=== PATIENT | female | born 2000 | race African-American/Black ===

== ENCOUNTER 2020-07-14 07:40 | Inpatient (IN) | payer SELFPAY ==
[~2020-07-14] VITALS: Ht 167.6 cm; Wt 80.9 kg
[2020-07-14 08:20] LABS: BASO % 0 % (0-3); EOS % 0 % (0-3); LYMPH # 0.8 x10^3/uL (1.0-4.8); LYMPH % 6 % (24-48); MEAN CORPUSCULAR HEMOGLOBIN 31 pg (25-35); MEAN CORPUSCULAR HGB CONC 34 g/dL (31-37); MEAN CORPUSCULAR VOLUME 94 fL (79-100); MONO # 0.8 x10^3/uL (0.0-1.1); MONO % 6 % (0-9); NEUT # 11.8 x10^3/uL (1.8-7.7); NEUT % 88 % (31-73); PLATELET COUNT 244 x10^3/uL (140-400); RED BLOOD COUNT 4.16 x10^6/uL (3.50-5.40); RED CELL DISTRIBUTION WIDTH 13.5 % (11.5-14.5); WHITE BLOOD COUNT 13.5 x10^3/uL (4.0-11.0)
[2020-07-14] MEDS ORDERED: MORPHINE SULFATE 4 MG/ML VIAL. IV ONE ×2 (08:30→11:00)
[2020-07-14] MEDS ORDERED: IV NORMAL SALINE 1000ML BAG 1,000 ML IV ONE ×2 (08:30→09:15)
[2020-07-14] MEDS ORDERED: LIDOCAINE 1% Multi-Dose 20 ML VIAL. INJ ONE (08:30)
[2020-07-14 08:35] LABS: CALCIUM 9.2 mg/dL (8.5-10.1); GFR 83.9; POTASSIUM 3.8 mmol/L (3.5-5.1)
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
[2020-07-14 08:49] LABS: ALBUMIN/GLOBULIN RATIO 0.9 (1.0-1.7); TOTAL BILIRUBIN 0.3 mg/dL (0.2-1.0); TOTAL PROTEIN 8.3 g/dL (6.4-8.2)
[2020-07-14] MEDS ORDERED: IOHEXOL 300 MG/ML 100ML VIAL. IV ONE (09:00)
[2020-07-14] MEDS ORDERED: CONTRAST GIVEN. MC PRN (09:15)
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
[2020-07-14 09:36] LABS: % BANDS 1 % (0-9); % LYMPHS 2 % (24-48); % MONOS 5 % (0-10); % SEGS 92 % (35-66)
[2020-07-14 09:37] LABS: PLT ESTIMATE ADEQUATE (ADEQUATE)
[2020-07-14 09:38] LABS: OVALOCYTES OCC
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
[2020-07-14] MEDS ORDERED: ONDANSETRON PF 4 MG/2 ML VIAL. ONE (11:04)
[2020-07-14] MEDS ORDERED: ONDANSETRON PF 4 MG/2 ML VIAL. IVP ONE (11:15)
[2020-07-14] MEDS ORDERED: ONDANSETRON PF 4 MG/2 ML VIAL. IV PRN ×2 (12:00→13:00)
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
[2020-07-14] MEDS ORDERED: SODIUM PHOSPHATES 19/7GM 133 ML ENEMA. PR PRN (13:00)
[2020-07-14] MEDS ORDERED: MAG HYDROX/ALUMINUM HYD/SIMETH 30 ML ORAL.SUSP PO PRN (13:00)
[2020-07-14] MEDS ORDERED: ALBUTEROL SULFATE 2.5 MG/3 ML NEBU. NEB PRN (13:00)
[2020-07-14] MEDS ORDERED: 0.9 % SODIUM CHLORIDE 10 ML DISP.SYRIN. IV PRN (13:00)
[2020-07-14] MEDS ORDERED: guaiFENesin ORAL 200 MG/10 ML LIQUID. PO PRN (13:00)
[2020-07-14] MEDS ORDERED: DOCUSATE SODIUM 100 MG CAPSULE. PO PRN (13:00)
[2020-07-14] MEDS ORDERED: ACETAMINOPHEN 325 MG TABLET. PO PRN (13:00)
[2020-07-14] MEDS ORDERED: cloNIDine HCL 0.1 MG TABLET PO PRN (13:00)
[2020-07-14] MEDS ORDERED: LORazepam 0.5 MG TABLET PO PRN (13:00)
[2020-07-14] MEDS: HYDROmorphone 2 MG/ML VIAL IVP PRN (14:48)
[2020-07-14] MEDS: IV NORMAL SALINE 1000ML BAG 1,000 ML IV SCH ×4 (14:49→22:34)
[2020-07-14 15:15] VITALS: BP 117/65
[2020-07-14 15:33] LABS: BARBITURATES NEG (NEG); BENZODIAZEPINES NEG (NEG); CANNABINOIDS POS (NEG); COCAINE POS (NEG); METHADONE NEG (NEG); OPIATES POS (NEG); PHENCYCLIDINE NEG (NEG)
[2020-07-14 15:34] LABS: AMPHETAMINE/METHAMPHETAMINE NEG (NEG)
[2020-07-14] MEDS ORDERED: METR-34 PO (15:45)
[2020-07-14] MEDS: ENOXAPARIN 40 MG/0.4 ML SYRINGE. SQ SCH (17:35)
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
[2020-07-14 18:19] VITALS: BP 117/61
--- NOTE | 2020-07-14 18:28 | NUR ---
Ambulated to & from bathroom without calling for assistance, advised to call for help if needed, call light in reach
[2020-07-14] MEDS: MORPHINE SULFATE 4 MG/ML VIAL. IV PRN ×2 (20:24→23:37)
[2020-07-14 22:28] VITALS: BP 98/55
[2020-07-15 02:37] VITALS: BP 132/47
[2020-07-15] MEDS: IV NORMAL SALINE 1000ML BAG 1,000 ML IV SCH ×5 (03:58→23:33)
--- NOTE | 2020-07-15 04:36 | EKG ---
[facility] [address] [place] [address] Test Date: 2020-07-14 Test Time: 08:07:05 Pat Name: MIHIR DILLARD Department: Room: 446 Gender: F Transmission Supervisor: : 2000 Requested By: JOSE D KITCHEN Order Number: [id number] Reading MD: Measurements Intervals [place] Rate: 90 P: 55 AL: 148 QRS: 43 QRSD: 84 T: 21 QT: 360 QTc: 444 Interpretive Statements SINUS RHYTHM NORMAL ECG RI6.02 No previous ECG available for comparison
[2020-07-15] MEDS: MORPHINE SULFATE 4 MG/ML VIAL. IV PRN ×2 (06:27→09:55)
[2020-07-15 06:42] VITALS: BP 124/71
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
[2020-07-15 11:27] VITALS: BP 128/83
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
[2020-07-15 12:39] LABS: CALCIUM 7.6 mg/dL (8.5-10.1); CREATININE 0.7 mg/dL (0.6-1.0); GFR 126.6; POTASSIUM 3.2 mmol/L (3.5-5.1)
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
[2020-07-15 15:00] VITALS: BP 123/69
[2020-07-15] MEDS: ENOXAPARIN 40 MG/0.4 ML SYRINGE. SQ SCH (15:13)
[2020-07-15 16:13] LABS: BILIRUBIN,URINE NEGATIVE (NEG); CLARITY,URINE CLEAR; COLOR,URINE YELLOW; NITRITE,URINE NEGATIVE (NEG); PROTEIN,URINE NEGATIVE (NEG-TRACE); UROBILINOGEN,URINE 0.2 mg/dL (0.2 mg/dL)
[2020-07-15 16:21] LABS: BACTERIA,URINE FEW /HPF (0-FEW); SQUAMOUS EPITHELIAL CELL,UR MOD /LPF
[2020-07-15 16:32] LABS: RBC,URINE RARE /HPF (0-2); WBC,URINE RARE /HPF (0-4)
[2020-07-15] MEDS: HYDROmorphone 2 MG/ML VIAL IVP PRN ×2 (16:57→20:21)
[2020-07-15 18:24] VITALS: BP 83/57
[2020-07-15 23:28] VITALS: BP 113/63
[2020-07-16] MEDS: HYDROmorphone 2 MG/ML VIAL IVP PRN ×3 (00:29→08:57)
[2020-07-16 03:30] VITALS: BP 107/70
[2020-07-16] MEDS: IV NORMAL SALINE 1000ML BAG 1,000 ML IV SCH ×2 (05:57→12:25)
[2020-07-16 06:15] VITALS: BP 124/70
[2020-07-16] MEDS ORDERED: oxyCODONE/APAP 10/325 1 TAB TABLET PO PRN (08:45)
[2020-07-16 09:32] LABS: ALBUMIN 2.8 g/dL (3.4-5.0); CALCIUM 7.6 mg/dL (8.5-10.1); CREATININE 0.9 mg/dL (0.6-1.0); GFR 94.7; TOTAL BILIRUBIN 0.4 mg/dL (0.2-1.0); TOTAL PROTEIN 5.5 g/dL (6.4-8.2)
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
[2020-07-16 11:00] VITALS: BP 113/58
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
[2020-07-16] MEDS: POTASSIUM CHLORIDE 20 MEQ TABLET.ER. PO SCH ×2 (12:21→15:44)
--- NOTE | 2020-07-16 12:30 | DISCH ---
DISCHARGE INSTRUCTIONS Condition on Discharge Condition on Discharge: Stable Activity After Discharge Activity Instructions for Disc: Activity as tolerated Driving Instructions after Dis: Do not drive today Weight Bearing Status after Di: As tolerated Diet after Discharge Diet after Discharge: Regular Contacting the DR. after DC Call your doctor for: If your condition worsens Follow-Up Follow up with: PCP within 1 week of discharge ROMMEL ZARAGOZA MD Jul 16, 2020 12:30
[2020-07-16] MEDS ORDERED: IBUPROFEN 200 MG TABLET. PO PRN (12:45)
[2020-07-16 15:15] VITALS: BP 123/61
[2020-07-16 15:30] VITALS: BP 117/60
--- NOTE | 2020-07-16 16:45 | NUR ---
Discharge instructions given with prescriptions. Answered questions and concerns. Verbalized understanding. Pt discharged home accompanied by boyfriend. Escorted out by w/c.
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
== END 2020-07-16 16:45 | disposition home or self-care (01) | DRG 552 ==
LOC: ER 07:40 → 4 SOUTHEST 11:45
PROVIDERS: ADMIT Family Medicine; ATTEND Family Medicine
PROC: 0HQEXZZ Repair Left Lower Arm Skin, External Approach (ICD-10-PCS; principal; 2020-07-14)
DX: S32.029A Unspecified fracture of second lumbar vertebra, initial encounter for closed fracture (principal); S27.329A Contusion of lung, unspecified, initial encounter; M62.82 Rhabdomyolysis; S32.059A Unspecified fracture of fifth lumbar vertebra, initial encounter for closed fracture; F17.210 Nicotine dependence, cigarettes, uncomplicated; S32.039A Unspecified fracture of third lumbar vertebra, initial encounter for closed fracture; S32.049A Unspecified fracture of fourth lumbar vertebra, initial encounter for closed fracture; S51.012A Laceration without foreign body of left elbow, initial encounter; M25.562 Pain in left knee; S00.93XA Contusion of unspecified part of head, initial encounter; R07.9 Chest pain, unspecified; R10.9 Unspecified abdominal pain; Z82.49 Family history of ischemic heart disease and other diseases of the circulatory system; Z82.5 Family history of asthma and other chronic lower respiratory diseases; V86.69XA Passenger of other special all-terrain or other off-road motor vehicle injured in nontraffic accident, initial encounter; Y93.89 Activity, other specified; Y92.410 Unspecified street and highway as the place of occurrence of the external cause; Y99.8 Other external cause status
CPT/HCPCS: 12002; 36415; 70450; 71260; 72125; 73080; 73562; 74177; 80048; 80053; 80307; 81001; 82550; 83735; 84702; 85007; 85025; 93005; 94760; 96361; 96372; 96374; 96375; 96376; 99285; G0480; J1170; J1650; J2270; J2405; J3490; J7030; Q9967; 97110-GP; 97116-GP; 97530-GP; 97535-GO; G0378